=== PATIENT | female | born 1960 | race Caucasian/White ===

== ENCOUNTER 2021-01-05 18:21 | Emergency (ER) | payer BC ==
[~2021-01-05] VITALS: Ht 157.5 cm; Wt 90.7 kg
[2021-01-05 18:21] VITALS: BP_SYST 157
[2021-01-05] MEDS ORDERED: cloNIDine HCL 0.1 MG TABLET PO ONE (19:00)
[2021-01-05 19:06] LABS: BILIRUBIN,URINE NEGATIVE (NEGATIVE); CLARITY/URINE SL CLOUDY (CLEAR); COLOR,URINE YELLOW (YELLOW); GLUCOSE,URINE NEGATIVE (NEGATIVE); KETONES,URINE TRACE (NEGATIVE); LEUKOCYTE ESTERASE ,URINE 2+ (NEGATIVE); NITRITE, URINE NEGATIVE (NEGATIVE); PH,URINE 5.5 (5.0-8.0); PROTEIN URINE 1+ (NEGATIVE)
[2021-01-05 19:08] LABS: BLOOD, URINE TRACE (NEGATIVE)
[2021-01-05 19:16] LABS: RBC,URINE 0-3 /HPF (0-3); WBC,URINE 20-50 /HPF (0-3)
[2021-01-05 19:17] LABS: BACTERIA,URINE MODERATE /HPF (None Seen); MUCUS,URINE None Seen /LPF (None Seen)
[2021-01-05 20:04] LABS: EOSINOPHILS # (AUTO) 0.3 K/uL (0.0-0.4); HEMOGLOBIN 14.6 g/dL (12.0-16.0)
[2021-01-05 20:09] LABS: BASOPHILS # (AUTO) 0.1 K/uL (0.0-0.2); BASOPHILS % (AUTO) 0.8 % (0.0-2.0); EOSINOPHILS % (AUTO) 2.8 % (0.0-4.0); HEMATOCRIT 42.5 % (36-48); LYMPHOCYTES # (AUTO) 2.5 K/uL (1.0-5.5); LYMPHOCYTES % (AUTO) 25.8 % (20.5-51.5); MEAN CORPUSCULAR HEMOGLOBIN 32 pg (27-31); MEAN CORPUSCULAR HGB CONC 34 % (32-36); MEAN CORPUSCULAR VOLUME 92 fL (79.0-98.0); MONOCYTES # (AUTO) 0.8 K/uL (0.0-1.0); MONOCYTES % (AUTO) 8.5 % (1.7-9.3); NEUTROPHILS # (AUTO) 6.1 K/uL (1.8-7.7); NEUTROPHILS % (AUTO) 62.1 % (40.0-70.0); PLATELET COUNT (AUTO) 208 K/uL (130-430); RED BLOOD CELL COUNT(AUTO) 4.64 MIL/uL (4.2-6.2); RED CELL DISTRIBUTION WIDTH 13.2 % (9.0-15.0); WHITE BLOOD COUNT (AUTO) 9.8 K/uL (4.8-10.8)
[2021-01-05 20:21] LABS: CALCIUM 8.9 mg/dL (8.4-11.0); CREATININE 0.94 mg/dL (0.55-1.30); POTASSIUM 4.3 mmol/L (3.5-5.1)
[2021-01-05 20:27] LABS: ALBUMIN 3.3 g/dL (3.4-4.8); TOTAL BILIRUBIN 0.6 mg/dL (0.0-1.0)
[2021-01-05 20:29] LABS: INR 0.9 (0.8-1.2); PROTHROMBIN TIME 9.6 SECS (9.5-12.5)
[2021-01-05] MEDS ORDERED: AMOX-423 PO (20:39)
[2021-01-05] MEDS ORDERED: IBUP-1969 PO (20:39)
[2021-01-05 20:55] VITALS: BP_SYST 149
== END 2021-01-05 20:55 | disposition home or self-care (01) ==
LOC: SED 18:21
DX: K57.92 Diverticulitis of intestine, part unspecified, without perforation or abscess without bleeding (principal); Z90.49 Acquired absence of other specified parts of digestive tract; Z88.6 Allergy status to analgesic agent
CPT/HCPCS: 36415; 76376; 80053; 81000-TC; 82150-TC; 83605; 83615-TC; 83690-TC; 84484; 85025; 85610-TC; 85730-TC; 87086; 93005; 99285

== ENCOUNTER 2023-03-12 18:06 | Emergency (ER) | payer OTHER, BC ==
[~2023-03-12] VITALS: Ht 157.5 cm; Wt 99.8 kg
[~2023-03-12 18:06] MED LIST: AMOX-423 PO; IBUP-1969 PO
[2023-03-12 18:25] VITALS: BP_SYST 183
[2023-03-12] MEDS ORDERED: NACL 0.9% 1,000 ML IV ONE (18:30)
[2023-03-12] MEDS ORDERED: ONDANSETRON HCL 4 MG/2 ML VIAL IVP ONE (18:30)
[2023-03-12] MEDS ORDERED: fentaNYL CITRATE/PF 100 MCG/2 ML AMP IVP ONE (18:30)
--- NOTE | 2023-03-12 18:45 | NUR ---
Patient to ER bed 02 to gown for evaluation. Side rails up. Report given to PAVAN NO.
--- NOTE | 2023-03-12 18:47 | NUR ---
ER at bedside examining patient.
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
--- NOTE | 2023-03-12 18:55 | NUR ---
# 20 gauge angiocath placed to LEFT HAND. Use of asceptic technique. Opsite placed over site. Blood return noted. Blood for lab drawn from site. Flushed with 10 cc of normal saline. No evidence of infiltration noted. Patient tolerated well.
[2023-03-12] MEDS ORDERED: LIDO1ADH71 TD (20:41)
[2023-03-12] MEDS ORDERED: OXYC-128 PO (20:41)
[2023-03-12] MEDS ORDERED: IBUP-1969 PO (20:41)
[2023-03-12] MEDS ORDERED: KETOROLAC TROMETHAMINE 30 MG VIAL IVP ONE (20:45)
[2023-03-12 21:50] VITALS: BP_SYST 126
--- NOTE | 2023-03-12 21:50 | NUR ---
Patient given written and verbal discharge instructions and verbalizes understanding. ER MD discussed with patient the results and treatment provided. Patient in stable condition. ID arm band removed. IV catheter removed intact and dressing applied, no active bleeding. Rx of IBUPROFEN, LIDOCAINE, PERCOCET given. Patient educated on pain management and to follow up with PMD. Pain Scale 0/10 Opportunity for questions provided and answered. Medication side effect fact sheet provided.
== END 2023-03-12 21:50 | disposition home or self-care (01) ==
LOC: SED 18:06
DX: M54.6 Pain in thoracic spine (principal); Z88.6 Allergy status to analgesic agent; Z79.899 Other long term (current) drug therapy; V89.2XXA Person injured in unspecified motor-vehicle accident, traffic, initial encounter; Y93.89 Activity, other specified; Y92.89 Other specified places as the place of occurrence of the external cause; Y99.8 Other external cause status
CPT/HCPCS: 99285; 70450; 96374; 71045; 96375; 96361; 72072; 72100; 72170; 72125; 76376; J1885; J2405; J3010; J7030